=== PATIENT | male | born 1945 | race Caucasian/White ===

== ENCOUNTER 2018-01-08 13:06 | Emergency (ER) | payer OTHER ==
[~2018-01-08 13:06] MED LIST: ALEEVE; NO HOME MEDICATIONS
--- NOTE | 2018-01-08 13:59 | RADIOLOGY IMAGING REPORT ---
FACILITY: [facility] PATIENT NAME: Adrián Li : 1945 MR: [id number] V: [id number] EXAM DATE: ORDERING PHYSICIAN: FRANKY YAO TECHNOLOGIST: Location: [facility] [place] Patient: Adrián Li : 1945 Visit/Account:[id number] Date of Sevice: 01/08/[address] scan without contrast HISTORY: Head injury on anticoagulant therapy COMPARISONS: October 09, 2007 TECHNIQUE: Non-contrast head CT was performed with coronal reformations. One of the following dose optimization techniques was utilized in the performance of this exam: autom ated exposure control; adjustment of the mA and/or kV according to patient size; or use of iterative reconstruction technique. Specific details can be referenced in the facility's radiology CT exam ope rational policy. FINDINGS: No hydrocephalus or midline shift. The basal cisterns, benson-white differentiation, and convexity sulci are maintained. Right frontoparietal minimally dense extra-axial fluid collection measures up to 5 mm in thickness, c oronal image 57. New low density left frontoparietal extra-axial fluid collection measures 4 mm. Normal orbital soft tissues. Mild patchy white matter hypoattenuation has increased. Clear mastoid air cells. Right maxillary sinus mucous retention cyst. Sphenoid sinus mild mucosal thi ckening. No fracture. IMPRESSION: 1. No acute intracranial abnormality or acute intracranial hemorrhage. 2. New minimally dense right frontoparietal 5 mm extra-axial fluid collection is favored to represent a dense proteinaceous subdural hygroma and less likely a new chronic subdural hematoma. 3. New 4 mm left frontal parietal low-density subdural hygroma. 4. Mild chronic small vessel ischemic change. Report Dictated By: Rob Garcia MD at 01/08/2018 1:47 PM Report E-Signed By: Rob Garcia MD at 01/08/2018 1:54 PM [id number]
[2018-01-08] MEDS ORDERED: OXCA600T30 PO (14:09)
[2018-01-08] MEDS ORDERED: METO-253 PO (14:09)
[2018-01-08] MEDS ORDERED: MULT-1335 PO (14:09)
[2018-01-08] MEDS ORDERED: QUET200T PO (14:09)
[2018-01-08] MEDS ORDERED: ATOR40TA24 PO (14:09)
[2018-01-08] MEDS ORDERED: DABI150C3 PO (14:09)
[2018-01-08] MEDS ORDERED: MELO-207 PO (14:09)
[2018-01-08] MEDS ORDERED: ISOS10TA63 PO (14:09)
[2018-01-08] MEDS ORDERED: CHOL10005 PO (14:09)
--- NOTE | 2018-01-08 14:18 | ER Report ---
History and Physical Time Seen By MD: 13:15 Hx. of Stated Complaint: pt reports a fall last wednesday or wednesday, pt "not sure". pt reports headache today, takes blood thinners; pt given 100mcg fent and 0.5mg versed HPI/ROS CHIEF COMPLAINT: Headache HISTORY OF PRESENT ILLNESS: 72-year-old male on Pradaxa complains of a moderate severity frontal headache that began 2 days ago. He reports falling at home 4 days ago. He states he was walking around the house after doing a crossword puzzles and drinking some alcohol and fell hitting the back of his head. He is uncertain of whether there was LOC. He states he initially had some minor neck pain that has resolved now. He denies nausea or vomiting. He denies weakness, loss of coordination or numbness. He states he has taken Tylenol for his pain at home without significant relief. REVIEW OF SYSTEMS: Constitutional: No fever, no chills. Eyes: No discharge. ENT: No sore throat. Cardiovascular: No chest pain, no palpitations. Respiratory: No cough, no shortness of breath. Gastrointestinal: No abdominal pain, no vomiting. Genitourinary: No hematuria. Musculoskeletal: No back pain. Skin: No rashes. Neurological: As above Allergies: Coded Allergies: No Known Drug Allergies (Verified , 01/08/18) Home Meds Reported Medications Oxcarbazepine (OXCARBAZEPINE) 600 Mg Tablet, 900 MG PO BID 01/08/18 Meloxicam (MELOXICAM) 15 Mg Tablet, 22.5 MG PO QDAY 01/08/18 Cholecalciferol (Vitamin D3) (VITAMIN D3) 1,000 Unit Tablet, 2000 UNIT PO QDAY, TAB 01/08/18 Multivitamin With Minerals (MULTIPLE VITAMIN) 1 Each Tablet, 1 EACH PO QDAY, TAB 01/08/18 Metoprolol Tartrate (METOPROLOL TARTRATE) 50 Mg Tab, 1 TAB PO BID, TAB 01/08/18 Atorvastatin Calcium (LIPITOR) 40 Mg Tablet, 1.5 TAB PO QHS, TAB 01/08/18 Isosorbide Mononitrate (ISOSORBIDE MONONITRATE) 10 Mg Tablet, 30 MG PO QDAY 01/08/18 Quetiapine Fumarate (QUETIAPINE FUMARATE) 200 Mg Tablet, 200 MG PO QHS 01/08/18 Dabigatran Etexilate Mesylate (PRADAXA) 150 Mg Capsule, 150 MG PO BID, CAPSULE 01/08/18 Discontinued Reported Medications [Aleeve] No Conflict Check 3 THIS AM 10/09/07 [No Home Medications] No Conflict Check 07/10/07 Past Medical/Surgical History See nurse's note. Hx Alcohol Use: Yes Constitutional Vital Sign - Last 24 Hours 01/08/18 01/08/18 01/08/18 01/08/18 13:10 13:11 13:21 13:30 Temp 97.5 Pulse 67 65 Resp 18 19 B/P (MAP) 142/112 142/112 (122) 141/86 (104) Pulse Ox 90 87 O2 Delivery Room Air 01/08/18 01/08/18 01/08/18 01/08/18 13:36 13:51 14:00 14:06 Pulse 65 55 54 Resp 11 15 15 B/P (MAP) 135/80 (98) Pulse Ox 90 89 90 01/08/18 01/08/18 14:11 14:37 Pulse 73 75 Resp 14 16 B/P (MAP) 136/79 (98) Pulse Ox 91 91 O2 Delivery Room Air Physical Exam General Appearance: The patient is alert, has no immediate need for airway protection and no signs of toxicity. Eyes: Pupils equal and round no pallor or injection. ENT, Mouth: Mucous membranes are moist. Respiratory: There are no retractions, lungs are clear to auscultation. Cardiovascular: Regular rate and rhythm. Gastrointestinal: Abdomen is soft and non tender, no masses, bowel sounds normal. Neurological: Alert and oriented 3. utilization review nurse 2 through 12 intact. Normal motor sensory in all extremities. Normal cerebellar function. Normal speech, normal comprehension. Skin: Warm and dry, no rashes. Musculoskeletal: Neck is supple non tender. Extremities are nontender, nonswollen and have full range of motion. DIFFERENTIAL DIAGNOSIS: After history and physical exam differential diagnosis was considered for headache including but not limited to subarachnoid hemorrhage , migraine headache, tension headache and infectious causes such as meningitis, pharyngitis and sinusitis. Medical Decision Making EKG/Imaging Imaging CT head without contrast shows no acute injury, no intracranial hemorrhage, no midline shift, 2 small likely hygromas are seen that are new compared to previous study 10 years ago. ED Course/Re-evaluation ED Course Patient's neuro exam is normal. Patient immediately went to CAT scan upon arrival in emergency department. His CAT scan shows no intracranial hemorrhage. Patient's fall 4 days ago appears to be secondary to alcohol use, rather than a medical condition. He is normal sinus rhythm with a rate of 70 on the monitor. Vital signs are normal. He was able to ambulate without difficulty in the ER. His presentation is consistent with concussion. He was given instructions to follow-up with his primary care doctor in 1 week if his headache is not improved. He is instructed to take Tylenol when necessary for his headache. Decision to Disposition Date: Jan 08, 2018 Decision to Disposition Time: 14:24 Depart Departure Latest Vital Signs Vital Signs Date Time Temp Pulse Resp B/P (MAP) Pulse Ox O2 Delivery O2 Flow Rate FiO2 01/08/18 14:37 75 16 136/79 (98) 91 Room Air 01/08/18 13:10 97.5 Impression: Primary Impression: Concussion Condition: Improved Disposition: HOME OR SELF-CARE Patient Instructions: Concussion (ED) Additional Instructions: Take Tylenol as needed for headache. Do not exceed 3000 mg per day. If your headache has not improved in one week follow-up with your doctor. Problem Qualifiers Primary Impression: Concussion Encounter type: initial encounter Loss of consciousness presence/duration: with LOC of unspecified duration Qualified Codes: S06.0X9A - Concussion with loss of consciousness of unspecified duration, initial encounter FRANKY YAO MD Jan 08, 2018 14:18
[2018-01-08] MEDS ORDERED: EMS NS 0.9%(*) 1000 ML BAG 1,000 ML IV ONE (14:20)
[2018-01-08] MEDS ORDERED: ACETAMINOPHEN 500 MG TAB PO ONE (14:30)
[2018-01-08 14:37] VITALS: BP 136/79
== END 2018-01-08 14:37 | disposition home or self-care (01) ==
LOC: ER 13:14
DX: S06.0X9A Concussion with loss of consciousness of unspecified duration, initial encounter (principal)
CPT/HCPCS: 70450; 96360; 96361; 99284